=== PATIENT | female | born 1935 | race Caucasian/White ===

== ENCOUNTER 2016-09-19 15:20 | Outpatient (CLI) | payer OTHER ==
[2014-03-21 06:09] VITALS: BP 166/65
[2016-09-19 15:37] LABS: BASOPHILS % 0.3 (0.0-1.5); EOSINOPHILS % 1.3 % (0.0-6.8); LYMPHOCYTES # 1.2 # k/uL (0.6-4.0); MEAN CORPUSCULAR HEMOGLOBIN 32.8 pg (28.0-34.0); MONOCYTES # 0.2 # k/uL (0.0-0.9); MONOCYTES % 5.4 % (0.0-11.0); NEUTROPHILS # 2.8 # k/uL (1.4-7.7)
== END 2016-09-19 15:25 | disposition home or self-care (01) ==
LOC: LAB 15:20
PROVIDERS: ATTEND Internal Medicine Hematology & Oncology
DX: D46.0 Refractory anemia without ring sideroblasts, so stated (principal)
CPT/HCPCS: 36415; 85025

== ENCOUNTER 2016-11-02 15:18 | Outpatient (CLI) | payer OTHER ==
[2014-03-21 06:09] VITALS: BP 166/65
[2016-11-02 15:38] LABS: BASOPHILS % 0.2 (0.0-1.5); EOSINOPHILS % 0.9 % (0.0-6.8); LYMPHOCYTES # 1.1 # k/uL (0.6-4.0); MEAN CORPUSCULAR HEMOGLOBIN 31.8 pg (28.0-34.0); MONOCYTES # 0.3 # k/uL (0.0-0.9); MONOCYTES % 5.4 % (0.0-11.0); NEUTROPHILS # 4.4 # k/uL (1.4-7.7)
== END 2016-11-02 15:20 ==
LOC: LAB 15:18
PROVIDERS: ATTEND Internal Medicine Hematology & Oncology
DX: D46.0 Refractory anemia without ring sideroblasts, so stated (principal)
CPT/HCPCS: 36415; 85025

== ENCOUNTER 2018-08-08 10:24 | Outpatient (CLI) | payer OTHER ==
[2014-03-21 06:09] VITALS: BP 166/65
[2018-08-08] MEDS: GENTAMICIN SULFATE 80 MG in 0.9 % SODIUM CHLORIDE 100 ML IV ONE (11:25)
[2018-08-08] MEDS ORDERED: SODIUM CHLORIDE IV ONE (11:25)
[2018-08-08] MEDS ORDERED: GENTAMICIN SULFATE 80 MG/2 ML VIAL ONE (11:25)
[2018-08-08] MEDS ORDERED: SALINE FLUSH 10 ML DISP.SYRIN IVF ONE (11:25)
== END 2018-08-08 10:34 | disposition home or self-care (01) ==
LOC: INF 10:24
PROVIDERS: ATTEND Nurse Practitioner Family
DX: N39.0 Urinary tract infection, site not specified (principal)
CPT/HCPCS: 96365; J1580; S1016

== ENCOUNTER 2018-08-28 12:23 | Outpatient (CLI) | payer OTHER ==
[2014-03-21 06:09] VITALS: BP 166/65
[2018-08-28 13:03] LABS: APPEARANCE,URINE CLOUDY (CLEAR); COLOR,URINE YELLOW (YELLOW); OCCULT BLOOD,URINE NEGATIVE (NEGATIVE); PH URINE 5.5 (5.0 - 8.0)
[2018-08-28 13:04] LABS: UROBILINOGEN URINE 0.2 Eu (0.2-1.0)
--- NOTE | 2018-08-28 13:46 | Diagnostic Imaging Report ---
MARIS PITT (JORDIN) - OP [facility] [address] [facility].[address] [address] Report Submission Date: Aug 28, 2018 1:45:16 PM FAMILY THERAPIST Patient Study Name: JEYSON SAEED Date: Aug 28, 2018 12:42:36 PM FAMILY THERAPIST Modality Type: DX Gender: F Description: SPINE : 35 Institution: [facility] Physician: MARIS PITT (JORDIN) - OP Examination: Cervical/thoracic spine History: Neck and back pain x 3 days (Hx) Comparison exams: None available Findings: 6 views of the cervical and thoracic spine demonstrate s multilevel degenerative spurring. No anterior compression. No abnormal listhesis. No odontoid abnormality. Slight thoracic curvature to the right. No prevertebral abnormality. Vascular calcifications. Impression: Multilevel degenerative changes. No acute appearing osseous abnormality Electronically signed on Aug 28, 2018 1:45:16 PM FAMILY THERAPIST by: Danielito ELLIOTT
== END 2018-08-28 12:24 ==
LOC: RAD 12:23
PROVIDERS: ATTEND Nurse Practitioner Family
DX: R30.0 Dysuria (principal); B96.89 Other specified bacterial agents as the cause of diseases classified elsewhere; M25.78 Osteophyte, vertebrae; M54.6 Pain in thoracic spine; M54.2 Cervicalgia
CPT/HCPCS: 72040; 72072; 81002; 87086; 87186

== ENCOUNTER 2018-10-22 15:32 | Outpatient (CLI) | payer OTHER ==
[2014-03-21 06:09] VITALS: BP 166/65
== END 2018-10-22 15:34 ==
LOC: LAB 15:32
PROVIDERS: ATTEND Internal Medicine Hematology & Oncology
DX: C90.00 Multiple myeloma not having achieved remission (principal); D05.12 Intraductal carcinoma in situ of left breast; D50.0 Iron deficiency anemia secondary to blood loss (chronic); D46.0 Refractory anemia without ring sideroblasts, so stated; R10.32 Left lower quadrant pain; N39.0 Urinary tract infection, site not specified
CPT/HCPCS: 36415; 80048; 82570; 83883; 84155; 84156; 84165; 84166